=== PATIENT | female | born 1975 ===

== ENCOUNTER 2023-05-23 20:21 | Emergency (ER) | payer SELFPAY ==
[2023-05-23 20:37] VITALS: BP 128/82; PULSE 90; RESP 18; TEMP 36.6; O2SAT 98; BMI 19.8
--- NOTE | 2023-05-23 21:07 | W.ED.SEIZURE ---
HPI - Seizure General: Chief Complaint: Seizure Stated Complaint: SEIZURE Time Seen by Provider: 05/23/23 20:49 Source: patient History of Present Illness: HPI Narrative: 41-year-old female type I diabetic. She has been without her insulin for at least 5 days or so. She also has a history of pseudoseizure. She states that she had a seizure in the [facility] living today. She has them frequently. She believes she used to take medications for these, but does not know what they are. complaint: seizure Onset (ago): hour(s) Description of Episode: loss of consciousness Trauma: No Seizure History: Yes Associated symptoms: Deny chest pain, chills, confusion, cough, diaphoresis, short of breath or syncope Review of Systems Const: Denies: chills or diaphoresis ENMT: Denies: throat pain Card: Denies: chest pain or syncope Resp: Denies: dyspnea, productive cough or non-productive cough GI: Denies: abdominal pain or vomiting Neuro: Denies: confusion Physical Exam Const: COMMON NORMALS: no acute distress GENERAL APPEARANCE: cooperative; not ill appearing and not frail appearing HENMT: COMMON NORMALS: normocephalic, atraumatic and Normal external nose present HEAD & SCALP: normocephalic and atraumatic FACE & SINUS: normal facial exam and face symmetric NOSE: Normal external nose present Eye: COMMON NORMALS: Equal, round and reactive pupils present and EOMs intact bilaterally PUPIL: Yes Equal, round and reactive pupils present Neck/C-Spine: GENERAL: Yes trachea midline Chest: CHEST: Yes Symmetrical chest wall rise Resp: COMMON NORMALS: normal respiratory effort, No retractions, No use of accessory muscles and clear to auscultation bilaterally AUSCULTATION: clear to auscultation bilaterally Cardio: COMMON NORMALS: regular rate and regular rhythm RATE: regular rate RHYTHM: regular rhythm GI: COMMON NORMALS: Normal to inspection, nondistended, normoactive bowel sounds present Extremity: COMMON NORMALS: no pedal edema Neuro: ANUJ COMA SCALE: document GCS findings Anuj coma scale eye opening: Spontaneous Anuj coma scale verbal response: Orientated Aguilar coma scale motor response: Obey commands Aguilar coma scale total score: 15 SENSORY EXAM: Yes extremities (intact) Psych: COMMON NORMALS: speech normal SPEECH: Yes normal speech Skin: COMMON NORMALS: no rashes or lesions noted GENERAL SKIN EXAM: no rashes or lesions noted Course Vital Signs: Vital signs: Vital Signs Temperature 98 F 05/23/23 20:37 Pulse Rate 80 05/23/23 23:00 Respiratory Rate 18 05/23/23 22:06 Blood Pressure 121/72 05/23/23 23:00 Pulse Oximetry 98 05/23/23 23:00 Oxygen Delivery Me thod Room Air 05/23/23 23:00 MDM - Seizure MDM Narrative Medical decision making narrative: No seizure activity here. Her exam is normal. Blood sugar is 430. No ketones. No acidosis. Sugar down to 230 after IV insulin. She is given her home dose of Lantus. Lantus and regular insulin prescribed along with sliding scale for the patient. She will be allowed discharge. Lab Data 05/23/23 21:50 05/23/23 21:50 Labs: Laboratory Results WBC 11.3 10^3/uL (4.0-10.0) H 05/23/23 21:50 RBC 5.20 10^6/uL (4.1-5.3) 05/23/23 21:50 Hgb 14.7 g/dL (11.5-15.3) 05/23/23 21:50 Hct 43.8 % (37.0-47.0) 05/23/23 21:50 MCV 84.2 fl (81-99) 05/23/23 21:50 MCH 28.3 pg (28.0-34.0) 05/23/23 21:50 MCHC 33.6 g/dL (30.0-36.0) 05/23/23 21:50 RDW 11.9 % (12.1-15.1) L 05/23/23 21:50 Plt Count 490 10^3/cmm (130-400) H 05/23/23 21:50 MPV 9.0 fL (7.4-10.4) 05/23/23 21:50 Neut % (Auto) 48.1 % 05/23/23 21:50 Lymph % (Auto) 43.7 % 05/23/23 21:50 [place] % (Auto) 5.5 % 05/23/23 21:50 Eos % (Auto) 1.8 % 05/23/23 21:50 Baso % (Auto) 0.5 % 05/23/23 21:50 Neut # (Auto) 5.41 10^3/uL (1.8-7.7) 05/23/23 21:50 Lymph # (Auto) 4.9 10^3/uL (0.8-4.8) H 05/23/23 21:50 [place] # (Auto) 0.6 10^3/uL (0.2-0.9) 05/23/23 21:50 Eos # (Auto) 0.2 10^3/uL (0.0-0.8) 05/23/23 21:50 Baso # (Auto) 0.1 10^3/uL (0.0-0.1) 05/23/23 21:50 Nucleated RBC % (auto) 0 % 05/23/23 21:50 Nucleated RBCs # 0.0 /100WBC 05/23/23 21:50 Sodium 135 mmol/L (136-145) L 05/23/23 21:50 Potassium 4.9 mmol/L (3.5-5.1) 05/23/23 21:50 Chloride 94 mmol/L (98-107) L 05/23/23 21:50 Carbon Dioxide 30 mmol/L (22-29) H 05/23/23 21:50 Anion Gap 15.9 (5-19) 05/23/23 21:50 BUN 12 mg/dL (6-20) 05/23/23 21:50 Creatinine 0.5 mg/dL (0.5-0.9) 05/23/23 21:50 GFR Calculation 131.7 mL/min (90-130) H 05/23/23 21:50 Glucose 424 mg/dL (65-115) H 05/23/23 21:50 POC Glucose 236 mg/dL (70-110) H 05/23/23 23:50 Calculated Osmolality 298 mOsm/kg (285-295) H 05/23/23 21:50 Calcium 9.5 mg/dL (8.5-10.5) 05/23/23 21:50 Phosphorus 3.4 mg/dL (2.5-4.5) 05/23/23 21:50 Magnesium 2.2 mg/dL (1.7-2.3) 05/23/23 21:50 Total Bilirubin 0.2 mg/dL (0.15-1.2) 05/23/23 21:50 AST 11 U/L (0-32) 05/23/23 21:50 ALT 6 U/L (0-33) 05/23/23 21:50 Alkaline Phosphatase 133 U/L (35-105) H 05/23/23 21:50 Total Protein 7.5 g/dL (6.6-8.7) 05/23/23 21:50 Albumin 3.8 g/dL (3.5-5.2) 05/23/23 21:50 Globulin 3.7 g/dL (1.3-4.6) 05/23/23 21:50 HCG, Qual Negative (Negative) 05/23/23 21:50 Urine Color Yellow (Yellow) 05/23/23 22:02 Urine Appearance Cloudy (CLEAR) A 05/23/23 22:02 Urine pH 8 (5-7) H 05/23/23 22:02 Ur Specific [place] 1.010 (1.005-1.030) 05/23/23 22:02 Urine Protein Trace (Negative) 05/23/23 22:02 Urine Glucose (UA) 4+ (Normal) H 05/23/23 22:02 Urine Ketones Negative (Negative) 05/23/23 22:02 Urine Blood 2+ (Negative) H 05/23/23 22:02 Urine Nitrate Negative (Negative) 05/23/23 22:02 Urine Bilirubin Neg (Negative) 05/23/23 22:02 Prot Sulfosalicylic Acd Negative (Negative) 05/23/23 22:02 Urine Urobilinogen Neg mg/dL (Negative) 05/23/23 22:02 Ur Leukocyte Esterase Negative (Negative) 05/23/23 22:02 Urine RBC 5-10 /hpf (0-2) H 05/23/23 22:02 Urine WBC 0-4 /hpf (0-5) H 05/23/23 22:02 Ur Squamous Epith Cells 15-25 /hpf (0-5) H 05/23/23 22:02 Amorphous Sediment Not Reportable 05/23/23 22:02 Urine Bacteria 3+ /hpf (NONE) H 05/23/23 22:02 Serum Ketones Negative (Negative) 05/23/23 21:50 Discharge Plan Discharge Patient Disposition: Home Clinical Impression: Generalized seizure, Acute hyperglycemia Condition: Stable Prescriptions: New Lantus Solostar U-100 Insulin 100 unit/mL (3 mL) insulin pen 20 unit SUBCUT QPM Qty: 15 0RF Humulin R Regular U-100 Insuln 100 unit/mL solution See Rx Instructions .ROUTE .COMPLEX PRN (Reason: hyperglycemia) Qty: 10 3RF Rx Instructions: administer according to sliding scale. 30 min prior to meals Keppra 500 mg tablet 500 mg PO BID Qty: 60 0RF Discharge Orders: Discharge ED (Routine); Ordered 05/23/23 Ordered By: Isreal Manuel Patient Instructions: Diabetic Hyperglycemia (ED) Activity Restrictions/Additional Instructions: Return for any problems. Sugars should be checked 30 minutes prior to meals and before bed. administer insulin accordingly. Coding Level of Care Code ED Catcher Filter Tip for Ruth Rayo
[2023-05-23 22:00] LABS: Basophils # 0.1 10^3/uL (0.0-0.1); Basophils % 0.5 %; Eosinophils # 0.2 10^3/uL (0.0-0.8); Eosinophils % 1.8 %; Hematocrit 43.8 % (37.0-47.0); Hemoglobin 14.7 g/dL (11.5-15.3); Lymphocytes # 4.9 10^3/uL (0.8-4.8); Lymphocytes % 43.7 %; Mean Corpuscular HGB Conc 33.6 g/dL (30.0-36.0); Mean Corpuscular Hemoglobin 28.3 pg (28.0-34.0); Mean Corpuscular Volume 84.2 fl (81-99); Monocytes # 0.6 10^3/uL (0.2-0.9); Monocytes % 5.5 %; Neutrophils # 5.41 10^3/uL (1.8-7.7); Neutrophils % 48.1 %; Nucleated Red Blood Cells % 0 %; Platelet Count 490 10^3/cmm (130-400); Red Cell Distribution Width 11.9 % (12.1-15.1); White Blood Count 11.3 10^3/uL (4.0-10.0)
[2023-05-23 22:06] VITALS: BP 108/63; PULSE 74; RESP 18; O2SAT 95
[2023-05-23] MEDS: sodium chloride 0.9% 1,000 ML 999 ML IV (22:06)
[2023-05-23 22:09] LABS: Glucose Point of Care 434 mg/dL (70-110)
[2023-05-23 22:19] LABS: HCG, Serum Qual Negative (Negative)
[2023-05-23 22:22] LABS: Ketone (Acetest) Serum Negative (Negative)
[2023-05-23 22:23] LABS: Blood Urine 2+ (Negative); Glucose Urine UA 4+ (Normal); Ketones Urine Negative (Negative); Nitrate Urine Negative (Negative); Protein Urine Trace (Negative); Urine Appearance Cloudy (CLEAR); Urine Color Yellow (Yellow); pH Urine 8 (5-7)
[2023-05-23 22:23] LABS: Alanine Aminotransferase 6 U/L (0-33); Albumin Level 3.8 g/dL (3.5-5.2); Alkaline Phosphatase 133 U/L (35-105); Blood Urea Nitrogen 12 mg/dL (6-20); Calcium 9.5 mg/dL (8.5-10.5); Carbon Dioxide 30 mmol/L (22-29); Chloride 94 mmol/L (98-107); Globulin 3.7 g/dL (1.3-4.6); Glomerular Filtration Rate 131.7 mL/min (90-130); Glucose 424 mg/dL (65-115); Magnesium 2.2 mg/dL (1.7-2.3); Osmolality Calculated 298 mOsm/kg (285-295); Phosphorus 3.4 mg/dL (2.5-4.5); Sodium 135 mmol/L (136-145); Total Bilirubin 0.2 mg/dL (0.15-1.2); Total Protein 7.5 g/dL (6.6-8.7)
[2023-05-23 22:24] LABS: Add Urine Microscopic? YES; Bilirubin Urine Neg (Negative); Leukocyte Esterase Urine Negative (Negative); Sulfosalicylic Acid Urine Negative (Negative); Urobilinogen Urine Neg (Negative)
[2023-05-23 22:27] LABS: Bacteria Urine 3+ /hpf; WBC Urine 0-4 /hpf (0-5)
[2023-05-23 22:28] LABS: Squamous Epithelial Cell Urine 15-25 /hpf (0-5)
[2023-05-23 22:31] LABS: Anion Gap 15.9 (5-19); Aspartate Amino Transferase 11 U/L (0-32); Potassium 4.9 mmol/L (3.5-5.1)
[2023-05-23 23:00] VITALS: BP 121/72; PULSE 80; O2SAT 98
[2023-05-23] MEDS: insulin regular-human 100 units/1 mL 8 UNIT IVP (23:09)
[2023-05-23] MEDS: insulin glargine 100 units/1 mL 20 UNIT SUBCUT (23:12)
[2023-05-23 23:53] LABS: Glucose Point of Care 236 mg/dL (70-110)
== END 2023-05-24 00:15 | disposition home or self-care (01) ==
PROVIDERS: Emergency Provider Emergency Medicine
DX: G40.409 Other generalized epilepsy and epileptic syndromes, not intractable, without status epilepticus (principal); Z79.4 Long term (current) use of insulin; E10.65 Type 1 diabetes mellitus with hyperglycemia
CPT/HCPCS: 36416; 80053; 81001; 82009; 82962; 83735; 84100; 84703; 85025; 96361; 96372; 96374; 99284; J1815; J7030